=== PATIENT | female | born 2000 | race Caucasian/White ===

== ENCOUNTER 2020-10-10 13:14 | Emergency (ER) | payer OTHER, SELFPAY ==
[2020-10-10 13:35] VITALS: BP 126/69; PULSE 80; RESP 14; TEMP 36.9; O2SAT 100; BMI 35.4
[2020-10-10 18:16] VITALS: BP 114/63; PULSE 90; RESP 16; O2SAT 99
--- NOTE | 2020-10-10 18:17 | PC.NURSE ---
Patient complaining of left sided c-spine tenderness. C-collar applied. Denies weakness in extremities or altered sensation in extremities.
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
[2020-10-10 19:24] VITALS: BP 107/58; PULSE 86; RESP 16; O2SAT 99
== END 2020-10-10 19:24 | disposition home or self-care (01) ==
PROVIDERS: Emergency Provider Emergency Medicine
DX: M62.838 Other muscle spasm (principal); S43.402A Unspecified sprain of left shoulder joint, initial encounter; S00.12XA Contusion of left eyelid and periocular area, initial encounter; S09.90XA Unspecified injury of head, initial encounter; M54.2 Cervicalgia; R07.9 Chest pain, unspecified; R51.9 Headache, unspecified; V89.2XXA Person injured in unspecified motor-vehicle accident, traffic, initial encounter
CPT/HCPCS: 70450; 71045; 72125; 99284; 99285

== ENCOUNTER → 2022-04-21 16:57 | Outpatient (CLI) | payer OTHER, SELFPAY ==
[2022-04-21 18:13] LABS: Follicle Stimulating Hormone 6.96 mIU/mL; Luteinizing Hormone 4.67 mIU/mL
[2022-04-29 13:33] LABS: Testosterone Free 0.65 ng/dL (0.10-0.85); Testosterone Total 21.5 ng/dL (10.0-55.0)
== END ==
PROVIDERS: PCP Physician Assistant; Referring Provider Obstetrics & Gynecology; Visit Provider Obstetrics & Gynecology
DX: L68.0 Hirsutism (principal)
CPT/HCPCS: 36415; 82627; 83001; 83002; 84402; 84403